=== PATIENT | male | born 1995 | race Caucasian/White ===

== ENCOUNTER 2017-11-10 12:31 | Inpatient (IN) | payer BC, OTHER ==
[~2017-11-10] VITALS: Ht 182.9 cm; Wt 73.9 kg
[2017-11-10] MEDS ORDERED: MAGNESIUM HYDROXIDE 30 ML LIQUID UDC PO PRN (15:45)
[2017-11-10] MEDS ORDERED: MIRALAX 17 GM POWD.PACK PO PRN (15:45)
[2017-11-10] MEDS ORDERED: ONDANSETRON 4 MG/2 ML VIAL IM PRN (15:45)
[2017-11-10] MEDS ORDERED: LOPERAMIDE HCL 2 MG CAPSULE PO PRN ×2 (15:45)
[2017-11-10] MEDS ORDERED: ACETAMINOPHEN 325 MG TABLET PO PRN (15:45)
[2017-11-10] MEDS ORDERED: DICYCLOMINE HCL 20 MG TABLET PO PRN (15:45)
[2017-11-10] MEDS ORDERED: BUPRENORPHINE HCL 2 MG TAB.SUBL SL PRN (15:45)
[2017-11-10] MEDS ORDERED: diphenhydrAMINE 50 MG CAPSULE PO PRN (15:45)
[2017-11-10] MEDS ORDERED: MAG HYDROX/AL HYDROX/SIMETH 30 ML LIQUID UDC PO PRN (15:45)
[2017-11-10] MEDS ORDERED: IBUPROFEN 600 MG TABLET PO PRN (15:45)
[2017-11-10 16:00] VITALS: BP 99/47
[2017-11-10] MEDS ORDERED: LORAZEPAM 1 MG TABLET PO ONE (16:15)
[2017-11-10 17:17] LABS: *AMPHETAMINE, URINE POSITIVE (NEGATIVE); *BARBITURATE, URINE POSITIVE (NEGATIVE); *CANNABINOID, URINE POSITIVE (NEGATIVE); *COCCAINE, URINE NEGATIVE (NEGATIVE); *OPIATE, URINE POSITIVE (NEGATIVE); *PHENCYCLIDINE SCREEN,URINE NEGATIVE (NEGATIVE)
[2017-11-10 18:27] LABS: BASOPHILS % (AUTO) 0.2 % (0.0-2.0); EOSINOPHILS % (AUTO) 0.1 % (0.0-7.0); HEMATOCRIT 45.3 % (36.7-47.1); HEMOGLOBIN 15.6 g/dL (12.5-16.3); LYMPHOCYTES # (AUTO) 1.6 K/uL (20.0-40.0); LYMPHOCYTES % (AUTO) 18.9 % (20.5-51.5); MEAN CORPUSCULAR HEMOGLOBIN 30.7 uug (23.8-33.4); MEAN CORPUSCULAR HGB CONC 34 g/dL (32.5-36.3); MEAN CORPUSCULAR VOLUME 89.3 fL (73.0-96.2); MONOCYTES # (AUTO) 0.6 K/uL (2.0-10.0); MONOCYTES % (AUTO) 6.9 % (0.0-11.0); NEUTROPHILS # (AUTO) 6.3 K/uL (1.8-8.9); NEUTROPHILS % (AUTO) 73.9 % (38.5-71.5); PLATELET COUNT (AUTO) 245 K/uL (152-348); RED BLOOD CELL COUNT(AUTO) 5.07 MIL/uL (4.06-5.63); WHITE BLOOD COUNT (AUTO) 8.6 K/uL (3.6-10.2)
[2017-11-10 18:50] LABS: ETHANOL < 3 MG/DL (0-0)
[2017-11-10 18:53] LABS: ALANINE AMINOTRANSFERASE 45 U/L (16-63); ALKALINE PHOSPHATASE 77 U/L (50-136); ASPARTATE AMINOTRANSFERASE 16 U/L (15-37); BILIRUBIN,TOTAL 0.4 mg/dL (0.2-1.0); CARBON DIOXIDE 27 mmol/L (21-32); CHLORIDE 100 mmol/L (98-107); CREATININE 0.8 mg/dL (0.6-1.3); GLUCOSE 118 mg/dL (74-106); MAGNESIUM 1.9 mg/dL (1.8-2.4); POTASSIUM 3.8 mmol/L (3.5-5.1); TOTAL PROTEIN, SERUM 7.7 g/dL (6.4-8.2); UREA NITROGEN, BLOOD 15 mg/dL (7-18)
[2017-11-10 20:00] VITALS: BP 104/65
[2017-11-10] MEDS: CLONIDINE HCL 0.1 MG TABLET PO PRN (23:06)
[2017-11-10] MEDS: METHOCARBAMOL 750 MG TABLET PO PRN (23:06)
[2017-11-10] MEDS: HYDROXYZINE PAMOATE 25 MG CAPSULE PO PRN (23:06)
[2017-11-11] VITALS: BP 107/73
[2017-11-11] MEDS ORDERED: LORAZEPAM 1 MG TABLET PO PRN ×2 (00:30)
[2017-11-11] MEDS ORDERED: LORAZEPAM 2 MG/1 ML VIAL IM PRN (00:30)
[2017-11-11 08:00] VITALS: BP 124/73
[2017-11-11] MEDS ORDERED: 5 DAY TAPER OF LORAZEPAM -SERENITY PROTOCOL PO PRN (09:00)
[2017-11-11] MEDS ORDERED: TUBERCULIN,PURIF.PROT.DERIV. 5 TU/0.1 ML TEST ID ONE (09:00)
[2017-11-11] MEDS ORDERED: 5 DAY TAPER BUPRENORPHINE -SERENITY PROTOCOL SL PRN (09:00)
[2017-11-11] MEDS: BUPRENORPHINE HCL 2 MG TAB.SUBL SL SCH ×4 (09:29→20:41)
[2017-11-11] MEDS: LORAZEPAM 1 MG TABLET PO SCH ×4 (09:29→20:42)
[2017-11-11] MEDS: MULTIVITAMINS,THERAPEUTIC TABLET PO SCH (09:29)
[2017-11-11 12:00] VITALS: BP 103/68
[2017-11-11 16:00] VITALS: BP 117/68
[2017-11-11] MEDS: ONDANSETRON ODT 4 MG TAB.RAPDIS SL PRN (18:06)
[2017-11-11 20:00] VITALS: BP 125/86
[2017-11-11] MEDS: CLONIDINE HCL 0.1 MG TABLET PO PRN (20:42)
[2017-11-12] MEDS: HYDROXYZINE PAMOATE 25 MG CAPSULE PO PRN (05:18)
[2017-11-12] MEDS: ONDANSETRON ODT 4 MG TAB.RAPDIS SL PRN ×2 (05:18→21:28)
[2017-11-12] MEDS: CLONIDINE HCL 0.1 MG TABLET PO PRN (05:19)
[2017-11-12 08:00] VITALS: BP 104/62
[2017-11-12] MEDS: MULTIVITAMINS,THERAPEUTIC TABLET PO SCH (08:33)
[2017-11-12] MEDS: LORAZEPAM 1 MG TABLET PO SCH ×3 (08:34→21:28)
[2017-11-12] MEDS: BUPRENORPHINE HCL 2 MG TAB.SUBL SL SCH ×3 (08:34→20:14)
[2017-11-12 10:06] LABS: HEPATITIS B SURFACE AG Negative (Negative)
[2017-11-12 12:00] VITALS: BP 111/70
[2017-11-12 16:00] VITALS: BP 113/72
[2017-11-12 20:01] VITALS: BP 114/64
[2017-11-12] MEDS: METHOCARBAMOL 750 MG TABLET PO PRN (21:32)
[2017-11-13 01:00] VITALS: BP 119/77
[2017-11-13] MEDS: CLONIDINE HCL 0.1 MG TABLET PO PRN ×2 (02:13→23:09)
[2017-11-13] MEDS: HYDROXYZINE PAMOATE 25 MG CAPSULE PO PRN ×2 (02:13→23:08)
[2017-11-13 08:00] VITALS: BP 107/64
[2017-11-13] MEDS: LORAZEPAM 1 MG TABLET PO SCH ×4 (08:44→20:29)
[2017-11-13] MEDS: MULTIVITAMINS,THERAPEUTIC TABLET PO SCH (08:44)
[2017-11-13] MEDS ORDERED: BUPRENORPHINE HCL 2 MG TAB.SUBL SL SCH (09:00)
[2017-11-13 12:00] VITALS: BP 99/62
[2017-11-13] MEDS: BUPRENORPHINE HCL 2 MG TAB.SUBL SL SCH ×2 (14:10→20:36)
[2017-11-13 16:00] VITALS: BP 105/60
[2017-11-13 20:00] VITALS: BP 105/61
[2017-11-13] MEDS: METHOCARBAMOL 750 MG TABLET PO PRN (20:29)
[2017-11-14] VITALS: BP 128/74
[2017-11-14 04:00] VITALS: BP 97/70
[2017-11-14 08:00] VITALS: BP 105/63
[2017-11-14] MEDS: BUPRENORPHINE HCL 2 MG TAB.SUBL SL SCH ×3 (09:18→20:45)
[2017-11-14] MEDS: LORAZEPAM 1 MG TABLET PO SCH ×3 (09:18→20:45)
[2017-11-14] MEDS: MULTIVITAMINS,THERAPEUTIC TABLET PO SCH (09:18)
[2017-11-14 12:00] VITALS: BP 107/60
[2017-11-14 16:00] VITALS: BP 125/73
[2017-11-14 20:00] VITALS: BP 136/72
[2017-11-14] MEDS ORDERED: TRAZODONE 50 MG TABLET PO ONE (22:30)
[2017-11-14] MEDS: HYDROXYZINE PAMOATE 25 MG CAPSULE PO PRN (22:47)
[2017-11-15] VITALS: BP 107/58
[2017-11-15 08:00] VITALS: BP 132/89
[2017-11-15] MEDS: MULTIVITAMINS,THERAPEUTIC TABLET PO SCH (08:20)
[2017-11-15] MEDS: LORAZEPAM 1 MG TABLET PO SCH ×2 (08:20→22:14)
[2017-11-15] MEDS ORDERED: BUPRENORPHINE HCL 2 MG TAB.SUBL SL SCH (09:00)
[2017-11-15 12:00] VITALS: BP 134/87
[2017-11-15 16:00] VITALS: BP 124/72
[2017-11-15 20:09] VITALS: BP 121/71
[2017-11-15] MEDS ORDERED: BUPRENORPHINE HCL 2 MG TAB.SUBL SL ONE (21:00)
[2017-11-15] MEDS: TRAZODONE 50 MG TABLET PO PRN (23:31)
[2017-11-16 08:27] VITALS: BP 98/60
[2017-11-16] MEDS: MULTIVITAMINS,THERAPEUTIC TABLET PO SCH (08:28)
[2017-11-16 12:59] VITALS: BP 105/56
[2017-11-16 17:03] VITALS: BP 143/84
[2017-11-16 20:25] VITALS: BP 125/76
[2017-11-16] MEDS: TRAZODONE 50 MG TABLET PO PRN (22:46)
[2017-11-16] MEDS ORDERED: HYDR-3895 PO (23:03)
[2017-11-16] MEDS ORDERED: CLON0.1T14 PO (23:03)
[2017-11-16] MEDS ORDERED: METH-406 PO (23:03)
[2017-11-17 00:50] VITALS: BP 109/61
[2017-11-17] MEDS: HYDROXYZINE PAMOATE 25 MG CAPSULE PO PRN (01:04)
[2017-11-17] MEDS: CLONIDINE HCL 0.1 MG TABLET PO PRN (01:04)
[2017-11-17 08:21] VITALS: BP 106/63
[2017-11-17] MEDS: MULTIVITAMINS,THERAPEUTIC TABLET PO SCH (08:48)
== END 2017-11-17 09:30 | disposition home or self-care (01) | DRG 895 ==
LOC: SRC 14:46
PROVIDERS: ADMIT Family Medicine Addiction Medicine; ATTEND Family Medicine Addiction Medicine
PROC: HZ2ZZZZ Detoxification Services for Substance Abuse Treatment (ICD-10-PCS; principal; 2017-11-10)
PROC: HZ41ZZZ Group Counseling for Substance Abuse Treatment, Behavioral (ICD-10-PCS; 2017-11-14)
DX: F10.230 Alcohol dependence with withdrawal, uncomplicated (principal); F15.20 Other stimulant dependence, uncomplicated; F11.23 Opioid dependence with withdrawal; Y90.9 Presence of alcohol in blood, level not specified; F13.230 Sedative, hypnotic or anxiolytic dependence with withdrawal, uncomplicated; Z59.0 Homelessness; F17.210 Nicotine dependence, cigarettes, uncomplicated; B19.20 Unspecified viral hepatitis C without hepatic coma; F41.9 Anxiety disorder, unspecified; F32.9 Major depressive disorder, single episode, unspecified; I10 Essential (primary) hypertension; G47.00 Insomnia, unspecified
CPT/HCPCS: 36415; 70030-TC; 80307; 80324; 80345; 80349; 80361; 83735; 85025; 86592; 86705; 86803; 87340; 87806; A4663; G0480; Q0162; Q0163